=== PATIENT | female | born 1955 | race Caucasian/White ===

== ENCOUNTER → 2017-08-13 | Outpatient (CLI) | payer BC | END | disposition home or self-care (01) | LOC: LABWHC1 09:36 | PROVIDERS: ATTEND Nurse Practitioner Family | DX: Z00.5 Encounter for examination of potential donor of organ and tissue (principal) | CPT/HCPCS: 86850; 86900; 86901 ==

== ENCOUNTER 2018-02-22 17:06 | Emergency (ER) | payer BC ==
[2018-02-22 17:27] VITALS: BP 138/81; PULSE 71; RESP 16; TEMP 98.6
--- NOTE | 2018-02-22 17:56 | ED ---
Neck Injury/Pain HPI - General Chief Complaint: Neck Pain/Injury Stated Complaint: fell (face plant) Time Seen by Provider: 02/22/18 17:27 Source: patient, RN notes reviewed Mode of arrival: ambulatory Limitations: no limitations - History of Present Illness Initial Comments: This a 62-year-old female presents emergency Department with chief complaint of facial and neck injury. Patient states that she was using a chainsaw and which became stuck in the tree. She states that she was attempting to lift a tree to alleviate the pressure and states that street gave way causing her to fall forward striking her face. She states she has a laceration on her nose and had a bloody nose. Her tetanus was updated 1 year ago. She states his safety glasses pushed up cutting her nose. Patient states she heard a crunch and is concerned she's developed some neck pain. Patient denies any headache, dizziness, loss conscious. Patient states that she's had no nausea vomiting blurred vision or any focal weakness. - Related Data Allergies Allergy/AdvReac Type Severity Reaction Status Date / Time Penicillins AdvReac Itching Verified 02/22/18 17:27 Review of Systems ROS Statement: Those systems with pertinent positive or pertinent negative responses have been documented in the HPI. ROS Other: All systems not noted in ROS Statement are negative. Past Medical History Past Medical History: No Reported History Additional Past Medical History / Comment(s): IBS History of Any Multi-Drug Resistant Organisms: None Reported Past Surgical History: Tubal Ligation Past Psychological History: No Psychological Hx Reported Smoking Status: Never smoker Past Alcohol Use History: Occasional Past Drug Use History: None Reported General Exam Limitations: no limitations General appearance: alert, in no apparent distress Head exam: Present: atraumatic, normocephalic, normal inspection Eye exam: Present: normal appearance, PERRL, EOMI. Absent: scleral icterus, conjunctival injection, periorbital swelling ENT exam: Present: normal oropharynx, mucous membranes moist, TM's normal bilaterally, normal external ear exam. Absent: normal exam (Superficial laceration across the bridge of the nose there is moderate tenderness to palpation and slight ecchymosis) Neck exam: Present: normal inspection. Absent: tenderness, meningismus, full ROM (Patient placed in c-collar no vertebral step-off or tenderness), lymphadenopathy Respiratory exam: Present: normal lung sounds bilaterally. Absent: respiratory distress, wheezes, rales, rhonchi, stridor Cardiovascular Exam: Present: regular rate, normal rhythm, normal heart sounds. Absent: systolic murmur, diastolic murmur, rubs, gallop, clicks Neurological exam: Present: alert, oriented X3, CN II-XII intact, reflexes normal. Absent: motor sensory deficit Skin exam: Present: warm, dry, intact, normal color. Absent: rash Course Vital Signs 02/22/18 17:25 Temperature 98.6 F Pulse Rate 71 Respiratory 16 Rate Blood Pressure 138/81 O2 Sat by Pulse 98 Oximetry Medical Decision Making - Medical Decision Making 62-year-old female presented for facial and neck injury. Patient has CT of her C-spine which show no acute fracture. Patient had nasal bone x-ray no acute fracture. Patient will be discharged at this time she does have a superficial laceration does not require any closure. Her tetanus is up-to-date. Return parameters were discussed. Disposition Clinical Impression: Epistaxis, Superficial laceration of face, Neck pain Disposition: HOME SELF-CARE Condition: Stable Instructions: Cervical Strain (ED) Additional Instructions: Please return to the Emergency Department if symptoms worsen or any other concerns. Is patient prescribed a controlled substance at d/c from ED?: No Referrals: Enmanuel Gordon MD [Primary Care Provider] - 1-2 days Time of Disposition: 18:15
--- NOTE | 2018-02-22 18:04 | XR ---
EXAMINATION TYPE: XR nasal bone DATE OF EXAM: 02/22/2018 COMPARISON: NONE HISTORY: Pain from laceration injury. TECHNIQUE: Complete nasal bone series with both lateral projections on frontal projection FINDINGS: Well-defined lucency on both lateral projections is felt to reflect prominent trabecula as extends into the deeper tissue. No acute displaced nasal bone fractures are identified. No significan t soft tissue swelling is seen. IMPRESSION: As above.
--- NOTE | 2018-02-22 18:09 | CT ---
EXAMINATION TYPE: CT cervical spine wo con DATE OF EXAM: 02/22/2018 COMPARISON: NONE HISTORY: Fell (face plant) with neck pain CT DLP: 596 mGycm. Automated Exposure Control for Dose Reduction was Utilized. TECHNIQUE: CT scan of the cervical spine is obtained without contrast, axial images are obtained, sa gittal and coronal reformatted images are also reviewed. FINDINGS: Cervical spine is visualized in its entirety from C1 through upper thoracic levels, demonst rates satisfactory alignment without evidence of acute fracture or dislocation. Prevertebral soft ti ssue appears within normal limits. The C1-C2 articulation is within normal limits on the coronal ryan ges. Vertebral body heights are maintained. There is moderate spurring and disc space narrowing C4-C5 thro ugh C6-C7 levels. Posterior spur disc complexes are effacing anterior thecal sac at these levels most prominent C4-C5 level. Review of axial images shows multilevel marginal spurring and uncovertebral f acet degenerative changes contributing to multilevel neural foraminal narrowing most prominent right greater than left C4-C5 and right C5-C6 and C6-C7 levels. Thyroid gland is felt within normal limits. Visualized lung apices are clear. IMPRESSION: There is no acute fracture or dislocation evident in the cervical spine.
== END 2018-02-22 18:20 | disposition home or self-care (01) ==
LOC: EC 17:06
DX: S01.21XA Laceration without foreign body of nose, initial encounter (principal); M54.2 Cervicalgia; R04.0 Epistaxis; Z88.0 Allergy status to penicillin; W18.09XA Striking against other object with subsequent fall, initial encounter; Y92.410 Unspecified street and highway as the place of occurrence of the external cause
CPT/HCPCS: 70160; 72125; 99284

== ENCOUNTER → 2019-06-25 | Outpatient (CLI) | payer BC ==
[2019-06-25 14:00] LABS: HGB 14.1 gm/dL (11.4-16.0); MCHC 34.5 g/dL (31.0-37.0); MCV 95.8 fL (80.0-100.0); Mean Platelet Volume 5.8; Platelet Count 370 k/uL (150-450); RBC 4.28 m/uL (3.80-5.40); WBC 7.4 k/uL (3.8-10.6)
[2019-06-25 20:07] LABS: Thyroid Peroxidase Antibodies 46.5 U/mL (0.0-60.0)
[2019-06-25 20:27] LABS: ALT 21 U/L (8-44); AST 21 U/L (13-35); Albumin/Globulin Ratio 1.87 (1.60-3.17); Alkaline Phosphatase 65 U/L (41-126); BUN/Creat Ratio 18.75 Ratio (12.00-20.00); Calcium 9.4 mg/dL (8.7-10.3); Carbon Dioxide 25.5 mmol/L (21.6-31.8); Chloride 106 mmol/L (96-109); Globulin 2.3 g/dL (1.6-3.3); Glucose 88 mg/dL (70-110); Potassium 4.8 mmol/L (3.5-5.5); Sodium 141 mmol/L (135-145); Total Bilirubin 0.9 mg/dL (0.2-1.2); Total Protein 6.6 g/dL (6.2-8.2)
[2019-06-25 20:35] LABS: Follicle Stimulating Hormone 76.5 mIU/mL
[2019-06-25 21:10] LABS: Progesterone <0.2 ng/mL
[2019-06-25 21:33] LABS: Estradiol <11.8 pg/mL
== END ==
LOC: LABWHC1 12:31
PROVIDERS: ATTEND Obstetrics & Gynecology
DX: N95.1 Menopausal and female climacteric states (principal); E34.50 Androgen insensitivity syndrome, unspecified; G47.00 Insomnia, unspecified; R41.3 Other amnesia; R53.83 Other fatigue; R61 Generalized hyperhidrosis
CPT/HCPCS: 36415; 80053; 82306; 82607; 82670; 83001; 84144; 84403; 84436; 84443; 84481; 85027; 86376

== ENCOUNTER → 2019-08-28 | Outpatient (CLI) | payer MEDICARE, BC ==
--- NOTE | 2019-08-31 09:47 | MM ---
Reason for exam: screening (asymptomatic). Last mammogram was performed 1 year and 7 months ago. History: Patient is postmenopausal. Took progesterone for 4 years. Physical Findings: A clinical breast exam by your physician is recommended on an annual basis and results should be correlated with mammographic findings. MG 3D Screening Mammo W/Cad Bilateral CC and MLO view(s) were taken. Prior study comparison: January 13, 2018, mammogram, performed at [facility]. January 10, 2017, mammogram, performed at [facility]. October 16, 2011, bilateral digital screening mammo w/CAD. December 08, 2009, bilateral digital screening mammogram. There are scattered fibroglandular densities. There is no discrete abnormality. No significant changes when compared with prior studies. ASSESSMENT: Negative, BI-RAD 1 RECOMMENDATION: Routine screening mammogram of both breasts in 1 year.
== END | disposition home or self-care (01) ==
LOC: RADMAMWWP 07:58
PROVIDERS: ATTEND Obstetrics & Gynecology
DX: Z12.31 Encounter for screening mammogram for malignant neoplasm of breast (principal)
CPT/HCPCS: 77063; 77067

== ENCOUNTER → 2020-10-11 | Outpatient (CLI) | payer MEDICARE, BC ==
[2020-10-11 09:17] VITALS: BP 156/89; PULSE 90; RESP 18; TEMP 98.5
--- NOTE | 2020-10-11 10:16 | P.HPOB ---
History of Present Illness H&P Date: 10/11/20 Chief Complaint: The patient is here for her routine gynecologic exam and ma mmogram. This is a 65-year-old 013 with an LMP of 1999. The patient is here to establish with this office. She states it has been more than 7 years since her last pelvic exam. She is without gynecologic complaints and denies any postmenopausal bleeding. She has used HRT in some form for more than 8 years. Most recently she was using some form of hormone pellet that was inserted through the skin. This was discontinued in December 2019. Review of Systems Weight has been stable. She denies respiratory, cardiac and G.I. problems. She denies maltreatment or problems with falling. : she denies any significant problems with urinary leakage. Past Medical History Past Medical History: No Reported History Additional Past Medical History / Comment(s): IBS that can be related to stress. 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 She had used HRT for more than 8 years. History of Any Multi-Drug Resistant Organisms: None Reported Past Surgical History: Tubal Ligation Additional Past Surgical History / Comment(s): Colonoscopy 2014(next after 10yr). Left foot hammer toe surgery. Past Psychological History: No Psychological Hx Reported Smoking Status: Never smoker Past Alcohol Use History: Occasional (3 per week) Past Drug Use History: None Reported Additional History: She has been since 2002. 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 - Past Family History Father Additional Family Medical History / Comment(s): Heart disease. Mother Family Medical History: Cancer, Diabetes Mellitus Additional Family Medical History / Comment(s): Cervical cancer. Medications and Allergies Home Medications Medication Instructions Recorded Confirmed Type No Known Home Medications 10/11/20 10/11/20 History Allergies Allergy/AdvReac Type Severity Reaction Status Date / Time acetaminophen [From Tylenol] Allergy Swelling Unverified 10/11/20 09:12 Penicillins AdvReac Itching Verified 10/11/20 09:12 Exam Vital Signs Temp Pulse Resp BP Pulse Ox 10/11/20 09:13 98.5 F 90 18 156/89 94 L Intake and Output 10/10/20 10/11/20 10/11/20 22:59 06:59 14:59 Other: Weight 87.09 kg Height 5 feet 6 inches, weight 192 pounds, BMI 31.0. This is a well-developed well-nourished white female who is alert and oriented times 3 in no acute distress. HEENT: Within normal limits. NECK: Supple without mass or thyromegaly. CHEST AND LUNGS: Clear to auscultation. HEART: Regular rate and rhythm. BREASTS: Are without mass or discharge. AXILLARY EXAM: Negative for adenopathy. BACK: Negative for CVA tenderness. ABDOMEN: Soft, nontender, without palpable masses. PELVIC EXAM: Normal external genitalia with mild atrophy. Cervix and vagina appear normal with mild atrophy. There is no unusual discharge. There is no evidence of prolapse. The uterus is midposition, nongravid size and nontender. There are no palpable adnexal masses or tenderness. RECTAL EXAM: Rectovaginal exam is negative for mass or tenderness and is negative for occult blood. EXTREMITIES: Nontender. IMPRESSION: 1. 65 year old menopausal female no longer on HRT with normal gynecologic exam. 2. Elevated blood pressure. PLAN: 1. Pap smear cotest was performed. According to the patient, she has been inadequately screened in recent years and her last pelvic exam was more than 8 years ago. We will continue screening for 10 years, then consider discontinuing them at that time. 2. Self breast awareness was discussed. 3. Screening mammogram will be done today. 4. Osteoporosis prevention was discussed including recommended amounts of calcium, vitamin D, and regular exercise. Bone density testing was recommended since it has been more than 5 years since she had one done. The order slip was given to the patient for this. 5. Her blood pressure was discussed. I have recommended checking her blood pressure at home on a regular basis since she has a cuff. She will follow up with Dr. Gordon for blood pressure elevations. 6.She does not get flu shots. I have recommended she consider this and the COVID vaccination when it is available to her. 7. I have recommended she return in one year for her annual well woman examination.
--- NOTE | 2020-10-13 11:38 | MM ---
Reason for exam: screening (asymptomatic). Last mammogram was performed 1 year and 2 months ago. History: Patient is postmenopausal. Took progesterone for 4 years. Physical Findings: A clinical breast exam by your physician is recommended on an annual basis and results should be correlated with mammographic findings. MG 3D Screening Mammo W/Cad Bilateral CC and MLO view(s) were taken. Prior study comparison: August 28, 2019, bilateral MG 3d screening mammo w/cad. January 13, 2018, mammogram, performed at [facility]. There are scattered fibroglandular densities. Focal asymmetry left CC, stable. No significant changes when compared with prior studies. ASSESSMENT: Benign, BI-RAD 2 RECOMMENDATION: Routine screening mammogram of both breasts in 1 year.
--- NOTE | 2020-10-19 15:08 | P.PN ---
Progress Note - Text Progress Note Date: 10/19/20 OUTPATIENT FOLLOW-UP NOTE TEST(S)/RESULTS: Test results from 3- include benign mammogram, normal bone density test, negative Pap smear and high-risk HPV testing which was positive (-16,-18) METHOD OF NOTIFICATION: The patient was notified by phone. PATIENT COMMENTS: The patient states she had some abnormal Pap smears many years ago when they had to be repeated. She has not had recent Pap smears. She saw Dr. Felix for hormone replacement therapy, but she does not believes Pap smears were done. DIAGNOSIS: Negative Pap smear with positive high-risk HPV testing with negative HPV 16 and negative HPV 18. Benign mammogram and normal bone density test. DISCUSSION: She has not been adequately screened for cervical abnormalities in recent years. Her ASCCP five-year MAYTE-3 plus risk is 4.8%. Follow-up in 1 year is recommended. PLAN: I have reviewed all these findings with the patient. I have stressed the importance of returning in one year for repeat Pap cotest. Repeat bone density test in 5 years.
== END | disposition home or self-care (01) ==
LOC: WWCWWP 08:56
PROVIDERS: ATTEND Obstetrics & Gynecology
DX: Z12.31 Encounter for screening mammogram for malignant neoplasm of breast (principal)
CPT/HCPCS: 77063; 77067

== ENCOUNTER → 2020-10-12 | Outpatient (CLI) | payer MEDICARE, BC ==
--- NOTE | 2020-10-12 17:27 | BD ---
EXAMINATION TYPE: Axial Bone Density DATE OF EXAM: 10/12/2020 COMPARISON: 10/16/2011 CLINICAL HISTORY: Postmenopausal screening Height: 66 Weight: 190.8 FRAX RISK QUESTIONS: Alcohol (3 or more units per day): no Family History (Parent hip fracture): no Glucocorticoids (More than 3mos): no (Ex: prednisone, prednisolone, methylprednisolone, dexamethasone, and hydrocortisone). History of Fracture in Adulthood: no Secondary Osteoporosis: 1. Type 1 Diabetes: no 2. Hyperthyroidism: no 3. Menopause before 45: no 4. Malnutrition: no 5. Chronic liver disease: no Rheumatoid Arthritis: no Current Tobacco Use: no RISK FACTORS HISTORY OF: Surgery to Spine/Hip(right/left)/Wrist (right/left): no Family History of Osteoporosis: no Active: yes Diet low in dairy products/other sources of calcium: yes Postmenopausal woman: 45 Lost more than 2 inches in height since high school: no MEDICATIONS: none Additional History: EXAM MEASUREMENTS: Bone mineral densitometry was performed using the [employer] System. Bone mineral density as measured about the Lumbar spine is: ----- L1-L4(G/cm2): 1.458 T Score Values are as follows: ----- L2: 1.1 ----- L3: 2.2 ----- L4: 3.8 ----- L1-L4: 2.3 Bone mineral density has: increased 8.3 % since study of: 10.16.2011 Bone mineral density about the R hip (g/cm2): 0.998 Bone mineral density about the L hip (g/cm2): 0.938 T Score values are as follows: -----R Neck: -0.3 -----L Neck: -0.7 -----R Total: 0.9 -----L Total: 0.7 Bone mineral density has: increased 3.2 % since study of: 10.16.2011 IMPRESSION: Normal (Values between +1 and -1 indicate normal bone mass). Consider repeating this study in 5 year s or sooner if there is some new clinical indication. NOTE: T-SCORE=SD OF THE YOUNG ADULT MEAN.
== END ==
LOC: RADBDWWP 09:43
PROVIDERS: ATTEND Obstetrics & Gynecology
DX: Z78.0 Asymptomatic menopausal state (principal); Z13.820 Encounter for screening for osteoporosis
CPT/HCPCS: 77080

== ENCOUNTER → 2021-11-21 | Outpatient (CLI) | payer MEDICARE ==
[2021-11-21 14:10] VITALS: BP 152/70; PULSE 62; RESP 12; TEMP 97.8
--- NOTE | 2021-11-21 14:52 | P.HPOB ---
History of Present Illness H&P Date: 11/21/21 Chief Complaint: The patient is here for her routine gynecologic exam and ma mmogram. This is a 66-year-old 013 with an LMP of 1999. The patient is here for her routine gynecologic exam. She is without gynecologic complaints and denies any postmenopausal bleeding. She did have a Pap smear that was negative on 10/11/2020. The high-risk HPV testing was positive (-16, -18). Review of Systems The patient has gained 3 pounds over the last year. She denies respiratory, cardiac, or G.I. problems. Past Medical History Past Medical History: No Reported History Additional Past Medical History / Comment(s): IBS that can be related to stress. 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 She had used HRT for more than 8 years. Cryotherapy of the cervix many years ago. History of Any Multi-Drug Resistant Organisms: None Reported Past Surgical History: Tubal Ligation Additional Past Surgical History / Comment(s): Colonoscopy 2014(next after 10yr). Left foot hammer toe surgery. Past Psychological History: No Psychological Hx Reported Smoking Status: Never smoker Past Alcohol Use History: Occasional Past Drug Use History: None Reported - Past Family History Father Additional Family Medical History / Comment(s): Heart disease. Mother Family Medical History: Cancer, Diabetes Mellitus Additional Family Medical History / Comment(s): Cervical cancer. Medications and Allergies Home Medications Medication Instructions Recorded Confirmed Type No Known Home Medications 10/11/20 11/21/21 History Allergies Allergy/AdvReac Type Severity Reaction Status Date / Time acetaminophen [From Tylenol] Allergy Swelling Unverified 11/21/21 13:57 Penicillins AdvReac Itching Verified 11/21/21 13:57 Exam Vital Signs Temp Pulse Resp BP Pulse Ox 11/21/21 13:58 97.8 F 62 12 152/70 95 Intake and Output 11/20/21 11/21/21 11/21/21 22:59 06:59 14:59 Other: Weight 88.451 kg Height 5 feet 7 inches, weight 195 pounds, BMI 30.5. This is a well-developed well-nourished white female who is alert and oriented times 3 in no acute distress. HEENT: Within normal limits. NECK: Supple without mass or thyromegaly. CHEST AND LUNGS: Clear to auscultation. HEART: Regular rate and rhythm. BREASTS: Are without mass or discharge. AXILLARY EXAM: Negative for adenopathy. BACK: Negative for CVA tenderness. ABDOMEN: Soft, nontender, without palpable masses. PELVIC EXAM: Normal external genitalia with mild atrophy. Cervix and vagina appear normal with mild atrophy. The cervix is somewhat stenotic secondary to atrophy. There is no unusual discharge. There is no evidence of prolapse. The uterus is midposition, nongravid size and nontender. There are no palpable adnexal masses or tenderness. RECTAL EXAM: Rectovaginal exam is negative for mass or tenderness and is negative for occult blood. EXTREMITIES: Nontender. IMPRESSION: 1. 66-year-old menopausal female with normal gynecologic exam. 2. Positive high-risk HPV testing(-16, -18) with negative Pap smear on 10/11/2020. PLAN: 1. Pap smear cotest was performed. 2. Self breast awareness was discussed with the patient. We have also discussed symptoms associated with inflammatory breast cancer. 3. Screening mammogram will be done today. 4. Osteoporosis prevention was discussed. She had a normal bone density test on 10/11/2020. This will be repeated in approximately 4 more years. 5. She has received her Covid vaccination series. 6. She was advised to return in one year for her annual well woman exam.
--- NOTE | 2021-11-23 10:44 | MM ---
Reason for exam: screening (asymptomatic). Last mammogram was performed 1 year and 1 month ago. History: Patient is postmenopausal. Took progesterone for 4 years. Physical Findings: A clinical breast exam by your physician is recommended on an annual basis and results should be correlated with mammographic findings. MG 3D Screening Mammo W/Cad Bilateral CC and MLO view(s) were taken. Technologist: Loraine Perry RT (R)(M) Prior study comparison: October 11, 2020, bilateral MG 3d screening mammo w/cad. August 28, 2019, bilateral MG 3d screening mammo w/cad. There are scattered fibroglandular densities. No significant changes when compared with prior studies. ASSESSMENT: Benign, BI-RAD 2 RECOMMENDATION: Routine screening mammogram of both breasts in 1 year.
== END ==
LOC: WWCWWP 13:49
PROVIDERS: ATTEND Obstetrics & Gynecology
DX: Z01.419 Encounter for gynecological examination (general) (routine) without abnormal findings (principal); Z12.31 Encounter for screening mammogram for malignant neoplasm of breast; Z78.0 Asymptomatic menopausal state; Z88.0 Allergy status to penicillin; Z88.6 Allergy status to analgesic agent
CPT/HCPCS: 77063; 77067

== ENCOUNTER → 2022-11-28 | Outpatient (CLI) | payer MEDICARE ==
[2022-11-28 08:16] VITALS: BP 172/95; PULSE 67; RESP 17; TEMP 98.2
--- NOTE | 2022-11-28 09:02 | P.HPOB ---
History of Present Illness H&P Date: 11/28/22 Chief Complaint: The patient is here for her routine gynecologic exam and ma mmogram. This is a 67-year-old 013 with an LMP of 1999. The patient states she has been seeing Dr. Felix and has been receiving HRT in the form of hormonal subcutaneous pellets as well as oral progesterone. She states her energy level has significantly increased with this. She started this about 6 months ago and has received to hormone pellets about 5 months apart. She denies any po stmenopausal bleeding. She denies any significant hot flashes. She has noticed a slight vaginal discharge without pruritus and attributes this to the hormone pellets. She recently has been seeing a new boyfriend, but she states she has not been sexually active with him. Review of Systems The patient has lost 3 pounds over the last year. She has been trying to lose w eight. She denies respiratory, cardiac, or G.I. problems. Past Medical History Past Medical History: No Reported History Additional Past Medical History / Comment(s): IBS that can be related to stress. 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 She had used HRT for more than 8 years. Cryotherapy of the cervix many years ago. History of Any Multi-Drug Resistant Organisms: None Reported Past Surgical History: Tubal Ligation Additional Past Surgical History / Comment(s): Colonoscopy 2014(next after 10yr). Left foot hammer toe surgery. Past Anesthesia/Blood Transfusion Reactions: No Reported Reaction Past Psychological History: No Psychological Hx Reported Smoking Status: Never smoker Past Alcohol Use History: Occasional (4 per week) Past Drug Use History: None Reported Additional History: She was but has been since 2013. She recently has been seeing a new boyfriend but has not been sexually active. She is retired. - Past Family History Father Additional Family Medical History / Comment(s): Heart disease. Mother Family Medical History: Cancer, Diabetes Mellitus Additional Family Medical History / Comment(s): Cervical cancer. . Medications and Allergies Home Medications and Allergies Comment(s): Subcutaneous hormone pellets every 5 months. Home Medications Medication Instructions Recorded Confirmed Type Aspirin [[place]] 81 mg PO DAILY 11/28/22 11/28/22 History Multivitamin [Multivitamins Adult 1 tablet PO DAILY 11/28/22 11/28/22 History Gummies] Progesterone, Micronized 200 mg PO DAILY 11/28/22 11/28/22 History [Progesterone] cycloSPORINE 0.05% OPHTH SOLN 1 drop BOTH EYES DAILY 11/28/22 11/28/22 History [Restasis] Allergies Allergy/AdvReac Type Severity Reaction Status Date / Time acetaminophen [From Tylenol] Allergy Swelling Unverified 11/28/22 08:07 Penicillins AdvReac Itching Verified 11/28/22 08:07 Exam Vital Signs Temp Pulse Resp BP Pulse Ox 11/28/22 08:14 98.2 F 67 17 172/95 97 Intake and Output 11/27/22 11/28/22 11/28/22 22:59 06:59 14:59 Other: Weight 87.09 kg Height 5 feet 7 inches, weight 192 pounds, BMI 30.1. This is a well-developed well-nourished white female who is alert and oriented times 3 in no acute distress. HEENT: Within normal limits. NECK: Supple without mass or thyromegaly. CHEST AND LUNGS: Clear to auscultation. HEART: Regular rate and rhythm. BREASTS: Are without mass or discharge. AXILLARY EXAM: Negative for adenopathy. BACK: Negative for CVA tenderness. ABDOMEN: Soft, nontender, without palpable masses. PELVIC EXAM: External genitalia reveals mild atrophy with mild generalized erythema without focal lesions. Cervix and vagina appear normal with a small to moderate amount of thick creamy discharge with a slight yellow tinge. No odor is noted. There is no cervical motion tenderness. There is no evidence of prolapse. The uterus is midposition, nongravid size and nontender. There are no palpable adnexal masses or tenderness. RECTAL EXAM: Rectovaginal exam is negative for mass or tenderness and is negative for occult blood. EXTREMITIES: Nontender. IMPRESSION: 1. 67-year-old menopausal female who is started on HRT in the form of subcutaneous pellets and oral progesterone through another health care provider. 2. Slight creamy vaginal discharge on exam today. 3. History of negative Pap smear with positive high-risk HPV(-16, -18) on 10/11/2020. Repeat Pap smear cotest on 11/21/2021 was negative. 4. History of cryotherapy of the cervix approximately in 2007. PLAN: 1. Pap smear cotest was performed. If this is negative, we will continue cervical screening until approximately 2027 because of her history of cryotherapy of the cervix. 2. Self breast awareness was discussed with the patient. We have also discussed symptoms associated with inflammatory breast cancer. 3. Screening mammogram will be done today. 4. Affirm vaginitis panel was obtained from the vagina. GC and chlamydia testing will also be done on the Pap smear because of the discharge. 5. Osteoporosis prevention was discussed. I have stressed the importance of adequate calcium, vitamin D and regular exercise. Recommended amounts of calcium and vitamin D were also discussed. She had a normal bone density test on 10/11/2020. We will repeat this in approximately 2025. 6. Colorectal cancer screening has been done with [facility] about 2 years ago according the patient. 7. She was advised to return in one year for her annual well woman exam.
--- NOTE | 2022-11-28 13:06 | MM ---
Reason for Exam: Screening (asymptomatic). Last screening mammogram was performed 12 month(s) ago. Patient History: Menarche at age 8. First Full-Term at age 20. Postmenopausal. Patient has history of breast feeding. Currently using Progesterone, starting at age 53. Risk Values: Becky 5 year model risk: 1.7%. NCI Lifetime model risk: 5.2%. Prior Study Comparison: 01/10/2017 Screening Mammogram, [facility]. 01/13/2018 Screening Mammogram, [facility]. 08/28/2019 Bilateral Screening Mammogram, [facility]. 10/11/2020 Bilateral Screening Mammogram, [facility]. 11/21/2021 Bilateral Screening Mammogram, [facility]. Tissue Density: There are scattered fibroglandular densities. Findings: Analyzed By CAD. There is no suspicious group of microcalcifications or new suspicious mass in either breast. Overall Assessment: Negative, BI-RAD 1 Management: Screening Mammogram of both breasts in 1 year. A clinical breast exam by your physician is recommended on an annual basis and results should be correlated with mammographic findings. Electronically signed and approved by: Shad Fiore D.O.
== END ==
LOC: WWCWWP 07:55
PROVIDERS: ATTEND Obstetrics & Gynecology
DX: Z12.31 Encounter for screening mammogram for malignant neoplasm of breast (principal); Z01.419 Encounter for gynecological examination (general) (routine) without abnormal findings; K58.9 Irritable bowel syndrome, unspecified; Z78.0 Asymptomatic menopausal state; Z79.621 Long term (current) use of calcineurin inhibitor; Z79.82 Long term (current) use of aspirin; Z79.890 Hormone replacement therapy; Z82.49 Family history of ischemic heart disease and other diseases of the circulatory system; Z83.3 Family history of diabetes mellitus; Z88.0 Allergy status to penicillin; Z88.6 Allergy status to analgesic agent; Z88.8 Allergy status to other drugs, medicaments and biological substances; N89.8 Other specified noninflammatory disorders of vagina
CPT/HCPCS: 77063; 77067; 87480; 87510; 87660

== ENCOUNTER → 2023-12-11 | Outpatient (CLI) | payer MEDICARE ==
[2023-12-11 10:44] VITALS: BP 154/80; PULSE 76; RESP 16; TEMP 98.1
--- NOTE | 2023-12-11 12:57 | P.HPOB ---
History of Present Illness H&P Date: 12/11/23 Chief Complaint: The patient is here for her routine gynecologic exam and ma mmogram. This is a 68-year-old -0-1-3 with an LMP of 2000. The patient is without gynecologic complaints. She states she is doing well with HRT pellets which she has been getting every [address] Felix. She states the HRT consists of estrogen, progesterone, and testosterone. She states she is been doing much better with her energy levels and has noticed significant improvement with her sexual activity. She is without gynecologic complaints and denies any postmenopausal bleeding. Patient had a Pap smear showing low-grade JULIA with positive HPV type 18 on 11/28/2022. Dr. Felix did a colposcopic examination and there was an ECC that showed low-grade JULIA. Review of Systems The patient has lost 16 pounds over the last year. She has been trying to lose weight with regular exercise. She denies respiratory, cardiac, or G.I. problems. Past Medical History Past Medical History: No Reported History Additional Past Medical History / Comment(s): IBS that can be related to stress. 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 She had used HRT for more than 8 years. Cryotherapy of the cervix many years ago. History of Any Multi-Drug Resistant Organisms: None Reported Past Surgical History: Tubal Ligation Additional Past Surgical History / Comment(s): Colonoscopy 2014(next after 10yr). Left foot hammer toe surgery. Past Anesthesia/Blood Transfusion Reactions: No Reported Reaction Past Psychological History: No Psychological Hx Reported Smoking Status: Never smoker Past Alcohol Use History: Occasional (20 drinks per week) Past Drug Use History: None Reported Additional History: She is and has been from her since 2011. Her had a CVA in 2013 and she has been responsible for his care since then. This has been very stressful for her since he is in a care facility and is unable to make decisions for himself. She has been with her boyfriend since 2022 and is sexually active. They live separately. - Past Family History Father Additional Family Medical History / Comment(s): Heart disease. Mother Family Medical History: Cancer, Diabetes Mellitus Additional Family Medical History / Comment(s): Cervical cancer. . Medications and Allergies Home Medications Medication Instructions Recorded Confirmed Type Multivitamin [Multivitamins Adult 1 tablet PO DAILY 11/28/22 12/11/23 History Gummies] Progesterone, Micronized 200 mg PO DAILY 11/28/22 12/11/23 History [Progesterone] cycloSPORINE 0.05% OPHTH SOLN 1 drop BOTH EYES DAILY 11/28/22 12/11/23 History [Restasis] Allergies Allergy/AdvReac Type Severity Reaction Status Date / Time acetaminophen [From Tylenol] Allergy Swelling Unverified 12/11/23 10:38 Penicillins AdvReac Itching Verified 12/11/23 10:38 Exam Vital Signs Temp Pulse Resp BP Pulse Ox 12/11/23 10:39 98.1 F 76 16 154/80 97 Intake and Output 12/10/23 12/11/23 12/11/23 22:59 06:59 14:59 Other: Weight 79.832 kg Height 5 feet 7 inches, weight 176 pounds, BMI 27.6. This is a well-developed well-nourished white female who is alert and oriented times 3 in no acute distress. HEENT: Within normal limits. NECK: Supple without mass or thyromegaly. CHEST AND LUNGS: Clear to auscultation. HEART: Regular rate and rhythm. BREASTS: Are without mass or discharge. AXILLARY EXAM: Negative for adenopathy. BACK: Negative for CVA tenderness. ABDOMEN: Soft, nontender, without palpable masses. PELVIC EXAM: Normal external genitalia with mild atrophy. Cervix and vagina appear normal with mild atrophy. There is no unusual discharge. There is no evidence of prolapse. The uterus is midposition, nongravid size and nontender. There are no palpable adnexal masses or tenderness. RECTAL EXAM: Rectovaginal exam is negative for mass or tenderness and is negative for occult blood. EXTREMITIES: Nontender. IMPRESSION: 1. 76-year-old menopausal female with normal gynecologic exam. 2. Previous low-grade JULIA Pap smear with positive HPV type 18. Colposcopic examination and ECC revealed low-grade JULIA in 2022. PLAN: 1. Pap smear cotest was performed. I will refer to the [facility] management guidelines for follow-up. 2. Self breast awareness was discussed with the patient. We have also discussed symptoms associated with inflammatory breast cancer. 3. Screening mammogram will be done today. 4. Osteoporosis prevention was discussed. She had a normal bone density test on 10/11/2020 and we will plan on repeating this after 5 years. 5. She was advised to return in one year for her annual well woman exam.
--- NOTE | 2023-12-12 17:45 | MM ---
Reason for Exam: Screening (asymptomatic). Last mammogram was performed 1 year(s) and 1 month(s) ago. Patient History: Menarche at age 8. First Full-Term at age 20. Postmenopausal. Patient has history of breast feeding. Currently using Progesterone, starting at age 53. Risk Values: Becky 5 year model risk: 1.7%. NCI Lifetime model risk: 5.0%. Prior Study Comparison: 10/11/2020 Bilateral Screening Mammogram, [facility]. 11/21/2021 Bilateral Screening Mammogram, [facility]. 11/28/2022 Bilateral MG 3D screening mammo w/cad, [facility]. Tissue Density: There are scattered areas of fibroglandular density. Findings: Analyzed By CAD. The pattern is symmetrical. No significant interval change is evident No suspicious groups of microcalcifications, spiculated or lobular masses, architectural distortion or other secondary signs of malignancy are mammographically apparent. Overall Assessment: Negative, BI-RAD 1 Management: Screening Mammogram of both breasts in 1 year. A negative mammogram report should not preclude additional follow up of suspicious palpable abnormalities. Patient should continue monthly self breast exam. A clinical breast exam by your physician is recommended on an annual basis and results should be correlated with mammographic findings. Note on Becky scores and lifetime risk: 1. A Becky score greater than 3% is considered moderate risk. If this is the case, consider specialist referral to assess eligibility for a risk reducing agent. 2. If overall lifetime risk for the development of breast cancer is 20% or higher, the patient may qualify for future screening with alternating mammogram and breast MRI. Electronically signed and approved by: Sandeep Hawkins D.O. Radiologis
== END ==
LOC: WWCWWP 10:26
PROVIDERS: ATTEND Obstetrics & Gynecology
DX: Z01.419 Encounter for gynecological examination (general) (routine) without abnormal findings (principal); Z12.31 Encounter for screening mammogram for malignant neoplasm of breast; A63.0 Anogenital (venereal) warts; Z78.0 Asymptomatic menopausal state; Z88.0 Allergy status to penicillin; Z88.6 Allergy status to analgesic agent
CPT/HCPCS: 77063; 77067

== ENCOUNTER → 2024-12-22 | Outpatient (CLI) | payer MEDICARE ==
[2024-12-22 10:44] VITALS: BP 117/77; PULSE 66; RESP 16; TEMP 99.2
--- NOTE | 2024-12-22 11:21 | P.HPOB ---
History of Present Illness H&P Date: 12/22/24 Chief Complaint: The patient is here for her routine gynecologic exam and ma mmogram. This is a 69-year-old -0-1-3 with an LMP of 1999. The patient continues to use HRT pellets with oral progesterone. She gets the pellets every [address] Tressa ross. She feels much better while using the HRT. This has improved her energy levels and sexual function. She is without gynecologic complaints and denies any postmenopausal bleeding. Review of Systems Her weight has been stable over the past year. She denies respiratory or cardiac problems. GI: Occasional IBS symptoms with diarrhea. She knows the foods that seem to make this worse and avoids them. Past Medical History Past Medical History: No Reported History Additional Past Medical History / Comment(s): IBS that can be related to stress. 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 She had used HRT for more than 8 years. Cryotherapy of the cervix many years ago. History of Any Multi-Drug Resistant Organisms: None Reported Past Surgical History: Tubal Ligation Additional Past Surgical History / Comment(s): Colonoscopy 2014(choosing to use cologard). Left foot hammer toe surgery. Past Anesthesia/Blood Transfusion Reactions: No Reported Reaction Past Psychological History: No Psychological Hx Reported Smoking Status: Never smoker Past Alcohol Use History: Occasional (1 drink about every other day.) Past Drug Use History: None Reported Additional History: She is a , but had been from her for many years. She has been with her boyfriend since 2022 and they have their own homes. Her boyfriend has also recently bought a large motor home. - Past Family History Father Additional Family Medical History / Comment(s): Heart disease. Mother Family Medical History: Cancer, Diabetes Mellitus Additional Family Medical History / Comment(s): Cervical cancer. . Medications and Allergies Home Medications Medication Instructions Recorded Confirmed Type Multivitamin [Multivitamins Adult 1 tablet PO DAILY 11/28/22 12/11/23 History Gummies] Progesterone, Micronized 200 mg PO DAILY 11/28/22 12/11/23 History [Progesterone] cycloSPORINE 0.05% OPHTH SOLN 1 drop BOTH EYES DAILY 11/28/22 12/11/23 History [Restasis] Nohelia 500 mg PO DAILY 12/22/24 12/22/24 History Turmeric Root Extract [Turmeric] 500 mg PO DAILY 12/22/24 12/22/24 History Allergies Allergy/AdvReac Type Severity Reaction Status Date / Time acetaminophen [From Tylenol] Allergy Swelling Unverified 12/22/24 10:45 Penicillins AdvReac Itching Verified 12/22/24 10:45 Exam Vital Signs Temp Pulse Resp BP Pulse Ox 12/22/24 10:50 99.2 F 66 16 117/77 97 12/22/24 10:43 99.2 F 66 16 117/77 97 Intake and Output 12/21/24 12/22/24 12/22/24 22:59 06:59 14:59 Other: Weight 78.925 kg Height 5 feet 5 inches, weight 174 pounds, BMI 29.0. This is a well-developed well-nourished white female who is alert and oriented times 3 in no acute distress. HEENT: Within normal limits. NECK: Supple without mass or thyromegaly. CHEST AND LUNGS: Clear to auscultation. HEART: Regular rate and rhythm. BREASTS: Are without mass or discharge. AXILLARY EXAM: Negative for adenopathy. BACK: Negative for CVA tenderness. ABDOMEN: Soft, nontender, without palpable masses. PELVIC EXAM: Normal external genitalia with mild atrophy. Cervix and vagina appear normal with mild atrophy. There is no unusual discharge. There is no evidence of prolapse. The uterus is midposition, nongravid size and nontender. There are no palpable adnexal masses or tenderness. RECTAL EXAM: Rectovaginal exam is negative for mass or tenderness and is negative for occult blood. EXTREMITIES: Nontender. IMPRESSION: 1. 69-year-old menopausal female with normal gynecologic exam. 2. Previous colposcopic examination showing a low-grade JULIA in 2022. Her Pap smear cotest on 12/11/2023 was negative. PLAN: 1. Pap smear will be deferred and this will be repeated next year. 2. Self breast awareness was discussed with the patient. We have also discussed symptoms associated with inflammatory breast cancer. 3. Screening mammogram will be done today. 4. Osteoporosis prevention was discussed. I have stressed the importance of adequate calcium, vitamin D and regular exercise. Recommended amounts of calcium and vitamin D were also discussed. Was discussed. Her last bone density test on 10/11/2020 was normal. We will plan on repeating this next year. 5. Colorectal cancer screening was discussed. She has been doing the screening with Cologuard testing through her PCP. 6. She was advised to return in one year for her annual well woman exam.
--- NOTE | 2024-12-22 11:57 | MM ---
Reason for Exam: Screening (asymptomatic). Last screening mammogram was performed 12 month(s) ago. Patient History: Menarche at age 8. First Full-Term at age 20. Postmenopausal. Patient has history of breast feeding. Currently using Progesterone, starting at age 53. Risk Values: Becky 5 year model risk: 1.7%. NCI Lifetime model risk: 4.7%. Prior Study Comparison: 11/21/2021 Bilateral Screening Mammogram, [facility]. 11/28/2022 Bilateral MG 3D screening mammo w/cad, [facility]. 12/11/2023 Bilateral MG 3D screening mammo w/cad, [facility]. Tissue Density: There are scattered areas of fibroglandular density. Findings: Analyzed By CAD. There is no suspicious new group of microcalcifications or new suspicious mass in either breast. Overall Assessment: Negative, BI-RAD 1 Management: Screening Mammogram of both breasts in 1 year. . Patient should continue monthly self-breast exams. A clinical breast exam by your physician is recommended on an annual basis. This exam should not preclude additional follow-up of suspicious palpable abnormalities. Note on Becky scores and lifetime risk: 1. A Becky score greater than 3% is considered moderate risk. If this is the case, consider specialist referral to assess eligibility for a risk reducing agent. 2. If overall lifetime risk for the development of breast cancer is 20% or higher, the patient may qualify for future screening with alternating mammogram and breast MRI. [facility], , 12/22/2024 11:54 AM. Electronically signed and approved by: Cliff Levy M.D.
== END ==
LOC: WWCWWP 10:30
PROVIDERS: ATTEND Obstetrics & Gynecology
DX: Z01.419 Encounter for gynecological examination (general) (routine) without abnormal findings (principal); Z12.31 Encounter for screening mammogram for malignant neoplasm of breast; Z78.0 Asymptomatic menopausal state; Z88.0 Allergy status to penicillin; Z88.6 Allergy status to analgesic agent
CPT/HCPCS: 77063; 77067